=== PATIENT | female | born 1990 | race Caucasian/White ===

== ENCOUNTER 2016-11-10 09:49 | Inpatient (IN) | payer MEDICARE, MEDICAID ==
[~2016-11-10] VITALS: Ht 162.6 cm; Wt 69.9 kg
[2016-11-10] MEDS ORDERED: ONDANSETRON HCL 4MG/2ML VIAL IV STA (10:24)
[2016-11-10] MEDS ORDERED: MORPHINE SULFATE 4 MG/ML CPJ (NOT FOR IM USE) IV STA (10:24)
[2016-11-10 10:52] LABS: HEMOGLOBIN. 9.8 g/dL (12.0-16.0); MEAN CORPUSCULAR HEMOGLOBIN 28.7 pg (28.0-32.0); MEAN CORPUSCULAR VOLUME 87.6 fL (81.0-99.0); MEAN PLATELET VOLUME 7.9 fl (7.4-10.4); PLATELET 313 x1000/uL (130-400); RED BLOOD CELL COUNT 3.43 mill/uL (4.2-5.4); RED CELL DISTRIBUTION WIDTH 23.1 % (11.6-14.6)
[2016-11-10 10:55] LABS: CHLORIDE 108 mEq/L (98-107)
[2016-11-10 10:58] LABS: INR 1.5; PROTHROMBIN TIME 15.9 sec (9.4-11.6)
[2016-11-10 11:03] LABS: CARBON DIOXIDE 24 mEq/L (21-32)
[2016-11-10 11:07] LABS: HCG SCREEN NEGATIVE
[2016-11-10] MEDS ORDERED: POTASSIUM CHLORIDE 20MEQ TABLET SR PO ONE (11:15)
[2016-11-10] MEDS ORDERED: KCL 20MEQ/100ML PREMIX 100 ML IV ONE (12:30)
[2016-11-10] MEDS ORDERED: ONDANSETRON HCL 4MG/2ML VIAL IV ONE (12:30)
[2016-11-10] MEDS ORDERED: MORPHINE SULFATE 4 MG/ML CPJ (NOT FOR IM USE) IV ONE (12:30)
[2016-11-10 12:50] LABS: PLATELET ESTIMATE NORMAL
[2016-11-10 14:08] LABS: CLARITY URINE CLEAR (CLEAR); COLOR URINE YELLOW (YELLOW); KETONES URINE NEGATIVE (NEGATIVE); LEUKOCYTE ESTERASE URINE TRACE (NEGATIVE); NITRITE URINE NEGATIVE (NEGATIVE); OCCULT BLOOD URINE NEGATIVE (NEGATIVE); PROTEIN URINE NEGATIVE (NEGATIVE); SPECIFIC GRAVITY URINE 1.007 (1.005-1.030)
[2016-11-10] MEDS ORDERED: MORP30TA66 PO (14:36)
[2016-11-10] MEDS ORDERED: HYDR-519 PO (14:36)
[2016-11-10] MEDS ORDERED: ACETAMINOPHEN 650MG/20.3ML UDC PO PRN (16:15)
[2016-11-10] MEDS ORDERED: HYDROCODONE/ACETAMINOPHEN 10/325MG TABLET PO PRN (16:15)
[2016-11-10] MEDS ORDERED: MORPHINE SULFATE PO SCH (16:15)
[2016-11-10] MEDS: SODIUM CHLORIDE 0.9% 1,000 ML IV SCH (16:53)
[2016-11-10] MEDS ORDERED: POTASSIUM CHLORIDE INJ 40 MEQ in DEXT 5% WATER 250 ML IV NR (17:30)
[2016-11-10] MEDS ORDERED: ZOLPIDEM TARTRATE 5MG TABLET PO PRN (21:00)
[2016-11-10] MEDS: MORPHINE SULFATE 30MG TABLET SR PO SCH (21:17)
[2016-11-11] MEDS: SODIUM CHLORIDE 0.9% 1,000 ML IV SCH (02:24)
[2016-11-11 06:38] LABS: HEMATOCRIT 28.8 % (36.0-48.0); HEMOGLOBIN 9.2 g/dL (12.0-16.0); MEAN CORPUSCULAR HEMOGLOBIN 28.3 pg (28.0-32.0); MEAN CORPUSCULAR VOLUME 88.5 fL (81.0-99.0); PLATELET 298 x1000/uL (130-400); RED BLOOD CELL COUNT 3.26 mill/uL (4.2-5.4); RED CELL DISTRIBUTION WIDTH 23.3 % (11.6-14.6)
[2016-11-11 07:06] LABS: CARBON DIOXIDE 23 mEq/L (21-32); CHLORIDE 113 mEq/L (98-107)
[2016-11-11] MEDS ORDERED: POTASSIUM CHLORIDE 20MEQ TABLET SR PO SCH (07:30)
[2016-11-11] MEDS: MORPHINE SULFATE 30MG TABLET SR PO SCH (08:45)
[2016-11-11 10:46] VITALS: BP 105/61
[2016-11-11] MEDS ORDERED: ENOXAPARIN 40MG/0.4ML SYR SUBCUT SCH (16:30)
== END 2016-11-11 11:30 | disposition home or self-care (01) | DRG 391 ==
LOC: ER 09:49 → ENRESERV 12:35 → 6WST 14:26
PROVIDERS: ADMIT Internal Medicine; ATTEND Internal Medicine
DX: K57.92 Diverticulitis of intestine, part unspecified, without perforation or abscess without bleeding (principal); E43 Unspecified severe protein-calorie malnutrition; C78.01 Secondary malignant neoplasm of right lung; C80.1 Malignant (primary) neoplasm, unspecified; E86.0 Dehydration; C78.02 Secondary malignant neoplasm of left lung; K76.0 Fatty (change of) liver, not elsewhere classified; G89.3 Neoplasm related pain (acute) (chronic); E87.6 Hypokalemia; R10.11 Right upper quadrant pain; R59.9 Enlarged lymph nodes, unspecified; Z92.21 Personal history of antineoplastic chemotherapy
CPT/HCPCS: 36415; 74176; 80048; 80053; 81001; 83690; 84703; 85025; 85027; 85610; 96365; 96375; 96376; 99285; J2270; J2405; J3480; J7030; J7060

== ENCOUNTER 2016-11-15 04:54 | Inpatient (IN) | payer MEDICARE, MEDICAID ==
[~2016-11-15] VITALS: Ht 160 cm; Wt 80.7 kg
[~2016-11-15 04:54] MED LIST: HYDR-519 PO; MORP30TA66 PO
[2016-11-15] MEDS ORDERED: ONDANSETRON HCL 4MG/2ML VIAL IV STA (05:42)
[2016-11-15] MEDS ORDERED: SODIUM CHLORIDE 0.9% 1,000 ML IV ONE (05:42)
[2016-11-15] MEDS ORDERED: MORPHINE SULFATE 4 MG/ML CPJ (NOT FOR IM USE) IV STA (05:42)
[2016-11-15 06:06] LABS: BASOPHILS % 0.9 % (0.0-2.0); EOSINOPHILS % 1.3 % (0.0-5.0); HEMATOCRIT. 32.7 % (36.0-48.0); HEMOGLOBIN. 10.6 g/dL (12.0-16.0); LYMPHOCYTES % 15.6 % (20.0-50.0); MEAN CORPUSCULAR HEMOGLOBIN 28.5 pg (28.0-32.0); MEAN PLATELET VOLUME 8.2 fl (7.4-10.4); MONOCYTES % 13.5 % (2.0-8.0); NEUTROPHILS % 68.7 % (40.0-76.0); PLATELET 241 x1000/uL (130-400); RED BLOOD CELL COUNT 3.71 mill/uL (4.2-5.4); RED CELL DISTRIBUTION WIDTH 22.6 % (11.6-14.6)
[2016-11-15] MEDS ORDERED: FENTANYL CITRATE/PF 50MCG/ML 2ML VIAL IV ONE (06:15)
[2016-11-15 06:19] LABS: CARBON DIOXIDE 22 mEq/L (21-32); CHLORIDE 104 mEq/L (98-107); CREATINE KINASE 72 IU/L (26-192); D-DIMER 1.69 mg/L FEU (<0.50); INR 1.7; PARTIAL THROMBOPLASTIN TIME 54.6 sec (23.4-31.0); PROTHROMBIN TIME 18.1 sec (9.4-11.6); TROPONIN I < 0.02 ng/mL (0.00-0.04)
[2016-11-15 06:40] LABS: PLATELET ESTIMATE NORMAL
[2016-11-15] MEDS ORDERED: GUAIFENESIN 200MG/10ML SUGAR FREE UDC PO PRN (07:45)
[2016-11-15] MEDS ORDERED: CLONIDINE 0.1MG TABLET PO PRN (07:45)
[2016-11-15] MEDS ORDERED: ONDANSETRON HCL 4MG/2ML VIAL IV PRN (07:45)
[2016-11-15] MEDS ORDERED: ACETAMINOPHEN 650MG/20.3ML UDC GT PRN (07:45)
[2016-11-15] MEDS ORDERED: DIPHENHYDRAMINE 50MG/ML VIAL IV PRN (07:45)
[2016-11-15] MEDS ORDERED: POTASSIUM CHLORIDE 20MEQ TABLET SR PO ONE (07:45)
[2016-11-15] MEDS ORDERED: IPRATROPIUM/ALBUTEROL 0.5-3(2.5)MG/3ML NEB INH PRN (07:45)
[2016-11-15] MEDS ORDERED: ACETAMINOPHEN 325MG TABLET PO PRN (07:45)
[2016-11-15] MEDS ORDERED: ENOXAPARIN 40MG/0.4ML SYR SUBCUT SCH (07:45)
[2016-11-15] MEDS ORDERED: ACETAMINOPHEN 650MG SUPP PR PRN (07:45)
[2016-11-15] MEDS ORDERED: DOCUSATE SODIUM 100MG CAPSULE PO PRN (07:45)
[2016-11-15] MEDS ORDERED: MAGNESIUM/ALUMINUM HYDROXIDE/SIMETHICONE 30ML UDC PO PRN (07:45)
[2016-11-15] MEDS ORDERED: NA PHOS,M-B/NA PHOS,DI-BA ENEMA 118ML PR PRN (07:45)
[2016-11-15 08:59] LABS: T4 FREE 1.27 ng/dL (0.76-1.46)
[2016-11-15 09:25] LABS: VITAMIN B12 SERUM 1391 pg/mL (211-911)
[2016-11-15] MEDS: MORPHINE SULFATE 4 MG/ML CPJ (NOT FOR IM USE) IV PRN ×4 (09:37→21:55)
[2016-11-15] MEDS ORDERED: ONDA8TAB6 PO (09:42)
[2016-11-15 09:47] VITALS: BP 118/75
[2016-11-15 10:09] VITALS: BP 118/75
[2016-11-15] MEDS ORDERED: SODIUM CHLORIDE 0.9% 10ML VIAL ONE (11:04)
[2016-11-15] MEDS ORDERED: IOHEXOL-350 100 ML BOTTLE ONE (11:04)
[2016-11-15] MEDS: SODIUM CHLORIDE 0.9% 1,000 ML IV SCH (11:50)
[2016-11-15 12:00] VITALS: BP 122/63
[2016-11-15] MEDS: IPRATROPIUM/ALBUTEROL 0.5-3(2.5)MG/3ML NEB INH SCH ×2 (12:33→21:05)
[2016-11-15 14:15] VITALS: BP 115/69
[2016-11-15] MEDS: HYDROCODONE/ACETAMINOPHEN 5/325MG TABLET PO PRN ×2 (15:20→20:09)
[2016-11-15 15:56] LABS: CREATINE KINASE 60 IU/L (26-192); CREATINE KINASE MB FRACTION 2.1 ng/mL (0.5-3.6); TROPONIN I < 0.02 ng/mL (0.00-0.04)
[2016-11-15 16:15] LABS: CLARITY URINE CLEAR (CLEAR); COLOR URINE YELLOW (YELLOW); GLUCOSE URINE NEGATIVE (NEGATIVE); KETONES URINE NEGATIVE (NEGATIVE); LEUKOCYTE ESTERASE URINE 2+ (NEGATIVE); NITRITE URINE NEGATIVE (NEGATIVE); OCCULT BLOOD URINE NEGATIVE (NEGATIVE); PH URINE 6.5 (4.5-8.0); PROTEIN URINE NEGATIVE (NEGATIVE); SPECIFIC GRAVITY URINE 1.016 (1.005-1.030); UROBILINOGEN URINE 0.2 E.U./dL (0.2-1.0)
[2016-11-15 16:30] LABS: *AMPHETAMINES SCREEN URINE NEGATIVE (NEGATIVE); *BARBITURATES SCREEN URINE NEGATIVE (NEGATIVE); *BENZODIAZEPINES SCREEN URINE NEGATIVE (NEGATIVE); *COCAINE SCREEN URINE NEGATIVE (NEGATIVE); METHADONE URINE SCREEN NEGATIVE (NEGATIVE); PHENCYCLIDINE URINE SCREEN NEGATIVE (NEGATIVE)
[2016-11-15 16:31] LABS: CANNABINOID URINE SCREEN PRESUMTIVE POSITIVE (NEGATIVE); OPIATES URINE SCREEN PRESUMTIVE POSITIVE (NEGATIVE)
[2016-11-15 20:00] VITALS: BP 113/60
[2016-11-15] MEDS: ENOXAPARIN 40MG/0.4ML SYR SUBCUT SCH (20:01)
[2016-11-15 22:00] VITALS: BP 109/64
[2016-11-15] MEDS ORDERED: MORPHINE SULFATE 2 MG/ML CPJ (NOT FOR IM USE) IV PRN (22:45)
[2016-11-15 23:05] LABS: CREATINE KINASE 75 IU/L (26-192); CREATINE KINASE MB FRACTION 1.8 ng/mL (0.5-3.6); T4 FREE 1.15 ng/dL (0.76-1.46); TROPONIN I < 0.02 ng/mL (0.00-0.04)
[2016-11-16] VITALS (12 sets, daily range): BP systolic 101–126; BP diastolic 19–72
[2016-11-16] MEDS: SODIUM CHLORIDE 0.9% INJ 3ML FLUSH IVF SCH ×4 (00:05→21:39)
[2016-11-16] MEDS: MORPHINE SULFATE 4 MG/ML CPJ (NOT FOR IM USE) IV PRN ×8 (01:36→23:23)
[2016-11-16] MEDS: IPRATROPIUM/ALBUTEROL 0.5-3(2.5)MG/3ML NEB INH SCH ×5 (02:10→20:58)
[2016-11-16] MEDS: SODIUM CHLORIDE 0.9% 1,000 ML IV SCH (04:00)
[2016-11-16 05:10] LABS: BASOPHILS % 0.4 % (0.0-2.0); EOSINOPHILS % 0.4 % (0.0-5.0); HEMATOCRIT. 31.7 % (36.0-48.0); HEMOGLOBIN. 10.3 g/dL (12.0-16.0); LYMPHOCYTES % 13.9 % (20.0-50.0); MEAN CORPUSCULAR HEMOGLOBIN 28.4 pg (28.0-32.0); MEAN CORPUSCULAR VOLUME 87.8 fL (81.0-99.0); MEAN PLATELET VOLUME 8.3 fl (7.4-10.4); MONOCYTES % 13.9 % (2.0-8.0); NEUTROPHILS % 71.4 % (40.0-76.0); PLATELET 229 x1000/uL (130-400); RED BLOOD CELL COUNT 3.61 mill/uL (4.2-5.4); RED CELL DISTRIBUTION WIDTH 22.9 % (11.6-14.6)
[2016-11-16 06:10] LABS: CARBON DIOXIDE 25 mEq/L (21-32); CHLORIDE 104 mEq/L (98-107); CREATINE KINASE 71 IU/L (26-192); HDL CHOLESTEROL 9 mg/dL (40-59); LDL CHOLESTEROL 18 mg/dL (5-100)
[2016-11-16 06:22] LABS: CREATINE KINASE MB FRACTION 1.6 ng/mL (0.5-3.6); TROPONIN I < 0.02 ng/mL (0.00-0.04)
[2016-11-16] MEDS ORDERED: PHYTONADIONE 5MG TABLET PO NR (08:00)
[2016-11-16] MEDS: ENOXAPARIN 40MG/0.4ML SYR SUBCUT SCH (08:13)
[2016-11-16 08:30] LABS: BG BASE EXCESS -0.1 mmol/L (-2.0-2.0); BG CARBOXYHEMOGLOBIN 0.8 % (0.5-1.5); BG DEOXYHEMOGLOBIN 4.5 % (0.0-5.0); BG FRACTION INSPIRED OXYGEN 21; BG HCO3 ACT 23.6 mmol/L (22.0-26.0); BG METHEMOGLOBIN 0.4 % (0.0-1.5); BG OXYGEN SATURATION 95.4 % (92.0-98.5); BG OXYHEMOGLOBIN 94.3 % (94.0-97.0); BG PCO2 35.2 mmHg (35.0-45.0); BG PH 7.445 (7.350-7.450); BG PO2 81.8 mmHg (75.0-100.0); BG SAMPLE SITE RIGHT RADIAL; BG TOTAL HEMOGLOBIN 11.1 g/dL (12.0-18.0); BG VENT MODE ROOM AIR
[2016-11-16 19:16] LABS: HCG SCREEN NEGATIVE
[2016-11-16] MEDS: OXYCODONE HCL 20MG TABLET SR 12HR PO SCH (21:39)
[2016-11-17] VITALS (13 sets, daily range): BP systolic 105–124; BP diastolic 60–69
[2016-11-17] MEDS: MORPHINE SULFATE 4 MG/ML CPJ (NOT FOR IM USE) IV PRN ×4 (02:30→17:07)
[2016-11-17] MEDS: SODIUM CHLORIDE 0.9% INJ 3ML FLUSH IVF SCH ×3 (05:23→21:14)
[2016-11-17] MEDS: IPRATROPIUM/ALBUTEROL 0.5-3(2.5)MG/3ML NEB INH SCH ×4 (08:50→21:05)
[2016-11-17] MEDS: OXYCODONE HCL 20MG TABLET SR 12HR PO SCH ×2 (09:11→21:14)
[2016-11-17] MEDS: ENOXAPARIN 40MG/0.4ML SYR SUBCUT SCH (09:12)
[2016-11-17] MEDS ORDERED: DIGOXIN 500MCG/2ML AMP IV NR (12:15)
[2016-11-18] VITALS (11 sets, daily range): BP systolic 96–119; BP diastolic 51–67
[2016-11-18] MEDS: MORPHINE SULFATE 4 MG/ML CPJ (NOT FOR IM USE) IV PRN ×2 (00:53→11:38)
[2016-11-18] MEDS: IPRATROPIUM/ALBUTEROL 0.5-3(2.5)MG/3ML NEB INH SCH ×4 (01:03→20:43)
[2016-11-18] MEDS: SODIUM CHLORIDE 0.9% INJ 3ML FLUSH IVF SCH ×3 (06:12→21:12)
[2016-11-18] MEDS: ENOXAPARIN 40MG/0.4ML SYR SUBCUT SCH (08:36)
[2016-11-18] MEDS: OXYCODONE HCL 20MG TABLET SR 12HR PO SCH ×2 (08:41→21:12)
[2016-11-18] MEDS ORDERED: IOHEXOL-350 100 ML BOTTLE ONE (12:09)
[2016-11-18] MEDS ORDERED: SODIUM CHLORIDE 0.9% 10ML VIAL ONE (12:09)
[2016-11-18] MEDS ORDERED: SODIUM BICARBONATE 4.2% 5 MEQ/10 ML DISP.SYRIN IV ONE (13:11)
[2016-11-18] MEDS ORDERED: LIDOCAINE HCL 1% 20ML VIAL (Pyxis) INJ ONE (13:11)
[2016-11-18 15:11] LABS: HEMATOCRIT. 30.4 % (36.0-48.0); HEMOGLOBIN. 9.9 g/dL (12.0-16.0); MEAN CORPUSCULAR HEMOGLOBIN 28.7 pg (28.0-32.0); MEAN CORPUSCULAR VOLUME 88.3 fL (81.0-99.0); MEAN PLATELET VOLUME 8.8 fl (7.4-10.4); PLATELET 232 x1000/uL (130-400); RED BLOOD CELL COUNT 3.44 mill/uL (4.2-5.4); RED CELL DISTRIBUTION WIDTH 21.8 % (11.6-14.6)
[2016-11-18 15:16] LABS: CARBON DIOXIDE 29 mEq/L (21-32); CHLORIDE 98 mEq/L (98-107)
[2016-11-18] MEDS ORDERED: SODIUM CHLORIDE 0.9% IV NR (18:30)
[2016-11-18] MEDS ORDERED: PAMIDRONATE DISODIUM IV NR (18:30)
[2016-11-18 22:25] LABS: PLATELET ESTIMATE NORMAL
[2016-11-19] VITALS (11 sets, daily range): BP systolic 94–131; BP diastolic 50–98
[2016-11-19] MEDS: IPRATROPIUM/ALBUTEROL 0.5-3(2.5)MG/3ML NEB INH SCH ×5 (02:03→20:37)
[2016-11-19] MEDS: SODIUM CHLORIDE 0.9% INJ 3ML FLUSH IVF SCH ×3 (06:03→22:00)
[2016-11-19] MEDS: ENOXAPARIN 40MG/0.4ML SYR SUBCUT SCH (08:09)
[2016-11-19] MEDS: OXYCODONE HCL 20MG TABLET SR 12HR PO SCH ×2 (08:09→20:38)
[2016-11-19] MEDS: SODIUM CHLORIDE 0.9% 1,000 ML IV NR ×3 (16:43→23:52)
[2016-11-19 17:01] LABS: CHLORIDE 98 mEq/L (98-107)
[2016-11-19 17:07] LABS: CARBON DIOXIDE 25 mEq/L (21-32)
[2016-11-19] MEDS ORDERED: DIGOXIN 500MCG/2ML AMP IV SCH (18:00)
[2016-11-19] MEDS ORDERED: PAMIDRONATE DISODIUM 60 MG in SODIUM CHLORIDE 0.9% 500 ML IV NR (19:30)
[2016-11-20] VITALS (13 sets, daily range): BP systolic 96–119; BP diastolic 39–59
[2016-11-20] MEDS: IPRATROPIUM/ALBUTEROL 0.5-3(2.5)MG/3ML NEB INH SCH ×3 (01:44→14:02)
[2016-11-20] MEDS: SODIUM CHLORIDE 0.9% INJ 3ML FLUSH IVF SCH ×2 (06:11→13:09)
[2016-11-20 06:43] LABS: HEMATOCRIT. 27.6 % (36.0-48.0); MEAN CORPUSCULAR HEMOGLOBIN 29.3 pg (28.0-32.0); MEAN CORPUSCULAR VOLUME 89.7 fL (81.0-99.0); MEAN PLATELET VOLUME 8.2 fl (7.4-10.4); PLATELET 237 x1000/uL (130-400); RED BLOOD CELL COUNT 3.08 mill/uL (4.2-5.4); RED CELL DISTRIBUTION WIDTH 21.7 % (11.6-14.6)
[2016-11-20 08:10] LABS: CARBON DIOXIDE 28 mEq/L (21-32); CHLORIDE 99 mEq/L (98-107); PHOSPHORUS 1.9 mg/dL (2.5-4.9)
[2016-11-20] MEDS: ENOXAPARIN 40MG/0.4ML SYR SUBCUT SCH (08:24)
[2016-11-20] MEDS: OXYCODONE HCL 20MG TABLET SR 12HR PO SCH (08:26)
[2016-11-20] MEDS ORDERED: SODIUM CHLORIDE 0.9% 1,000 ML IV ONE (10:00)
[2016-11-20] MEDS ORDERED: MAGNESIUM 2 G PREMIX 50 ML IV SCH (11:00)
[2016-11-20] MEDS ORDERED: POTASSIUM PHOS,M-BASIC-D-BASIC 10 MMOL in DEXT 5% WATER 250 ML IV SCH (11:00)
[2016-11-20] MEDS ORDERED: SODIUM PHOS,M-BASIC-D-BASIC 10 MM in DEXT 5% WATER 250 ML IV SCH (11:00)
[2016-11-20] MEDS ORDERED: NA PHOS,M-B/NA PHOS,DI-BA ENEMA 118ML PR PRN (11:45)
[2016-11-20] MEDS ORDERED: CARVEDILOL 6.25 MG TABLET PO SCH (12:00)
[2016-11-20 22:38] LABS: PLATELET ESTIMATE NORMAL
== END 2016-11-20 16:00 | disposition home or self-care (01) | DRG 843 ==
LOC: ER 04:54 → 5EST 06:46 → EDBEDREQ 06:52 → EDBEDREQTM 06:52 → ENRESERV 07:37
PROVIDERS: ADMIT Family Medicine; ATTEND Family Medicine
PROC: 02HV33Z Insertion of Infusion Device into Superior Vena Cava, Percutaneous Approach (ICD-10-PCS; principal; 2016-11-18)
PROC: B548ZZA Ultrasonography of Superior Vena Cava, Guidance (ICD-10-PCS; 2016-11-18)
DX: C79.89 Secondary malignant neoplasm of other specified sites (principal); E43 Unspecified severe protein-calorie malnutrition; R64 Cachexia; C49.9 Malignant neoplasm of connective and soft tissue, unspecified; D68.9 Coagulation defect, unspecified; E87.2 Acidosis; D63.8 Anemia in other chronic diseases classified elsewhere; C78.01 Secondary malignant neoplasm of right lung; C78.02 Secondary malignant neoplasm of left lung; M79.662 Pain in left lower leg; K76.0 Fatty (change of) liver, not elsewhere classified; E83.52 Hypercalcemia; E87.6 Hypokalemia; M79.605 Pain in left leg; R59.9 Enlarged lymph nodes, unspecified; G89.29 Other chronic pain; R00.0 Tachycardia, unspecified; R59.0 Localized enlarged lymph nodes; Z68.31 Body mass index [BMI] 31.0-31.9, adult
CPT/HCPCS: 36415; 36569; 36600; 71010; 71275; 73552; 73721; 75635; 76937; 77001; 80048; 80053; 80061; 80305; 81001; 82375; 82550; 82553; 82607; 82805; 82962; 83036; 83540; 83550; 83605; 83735; 83880; 84100; 84439; 84443; 84484; 84703; 85025; 85379; 85610; 85730; 93005; 93306; 93923; 93970; 94640; 96361; 96374; 96375; 96376; 99291; A4216; C1725; J1160; J1650; J2270; J2405; J2430; J3010; J3475; J3490; J7030; J7040; J7042; J7050; J7060; J7620; Q9967; A4315